=== PATIENT | male | born 1930 | race Two or more races ===

== ENCOUNTER → 2016-07-03 | Outpatient (CLI) | payer MEDICARE, OTHER | END | disposition home or self-care (01) | LOC: HKI 13:47 | PROVIDERS: ATTEND Orthopaedic Surgery | DX: M54.16 Radiculopathy, lumbar region (principal); M51.36 Other intervertebral disc degeneration, lumbar region; Z96.653 Presence of artificial knee joint, bilateral; Z96.641 Presence of right artificial hip joint | CPT/HCPCS: G0463 ==

== ENCOUNTER → 2016-11-18 | Outpatient (CLI) | payer MEDICARE, OTHER ==
--- NOTE | 2016-11-18 13:56 | RADRPT ---
PROCEDURE: XR pelvis/left hip. CLINICAL INDICATION: Hip pain TECHNIQUE: AP pelvis/AP and lateral left hip views performed. 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 There is no evidence of loosening of the prosthesis. No hard stovall failure is identified. There is severe left hip osteoarthrosis. This is associated with joint space narrowing, subchondral sclerosis, subchondral cyst formation and osteophytosis. There is normal osseous mineralization. N o fractures or osseous lesions are identified. The soft tissues are unremarkable. There is arterial vascular calcification. IMPRESSION: Right total hip replacement. Severe left hip osteoarthrosis. RPTAT: HGDB .Jesus Roblero MD, Date Time Electronically viewed and signed by .Jesus Roblero MD, on 11/18/2016 13:56 .B/
== END | disposition home or self-care (01) ==
LOC: HKI 08:29
PROVIDERS: ATTEND Orthopaedic Surgery
DX: M25.552 Pain in left hip (principal); M16.12 Unilateral primary osteoarthritis, left hip; Z96.653 Presence of artificial knee joint, bilateral; Z96.641 Presence of right artificial hip joint
CPT/HCPCS: 73502; G0463

== ENCOUNTER → 2017-01-27 | Outpatient (CLI) | payer MEDICARE, OTHER | END | disposition home or self-care (01) | LOC: HKI 09:56 | PROVIDERS: ATTEND Orthopaedic Surgery | DX: M16.12 Unilateral primary osteoarthritis, left hip (principal); M25.552 Pain in left hip; Z96.653 Presence of artificial knee joint, bilateral; Z96.641 Presence of right artificial hip joint | CPT/HCPCS: 71010; G0463 ==

== ENCOUNTER → 2017-02-05 | Outpatient (CLI) | payer MEDICARE, OTHER | END | disposition home or self-care (01) | LOC: HKI 13:54 | PROVIDERS: ATTEND Orthopaedic Surgery | DX: M16.12 Unilateral primary osteoarthritis, left hip (principal); Z09 Encounter for follow-up examination after completed treatment for conditions other than malignant neoplasm; Z96.653 Presence of artificial knee joint, bilateral; Z96.641 Presence of right artificial hip joint | CPT/HCPCS: G0463 ==

== ENCOUNTER → 2017-02-12 | Outpatient (CLI) | payer MEDICARE, OTHER | END | disposition home or self-care (01) | LOC: HKI 13:43 | PROVIDERS: ATTEND Orthopaedic Surgery | DX: Z01.818 Encounter for other preprocedural examination (principal); M16.12 Unilateral primary osteoarthritis, left hip; Z96.653 Presence of artificial knee joint, bilateral; Z96.641 Presence of right artificial hip joint | CPT/HCPCS: G0463 ==